=== PATIENT | female | born 1990 | race Caucasian/White ===

== ENCOUNTER 2018-11-04 04:44 | Emergency (ER) | payer OTHER ==
[~2018-11-04] VITALS: Ht 157.5 cm; Wt 78.4 kg
[2018-11-04 04:49] VITALS: BP 131/76; PULSE 79; RESP 18; Ht 157.5 cm; Wt 78.4 kg
[2018-11-04] MEDS ORDERED: ACETAMINOPHEN 500 MG TAB PO STA (05:53)
[2018-11-04] MEDS ORDERED: ACET500C5 PO (08:31)
--- NOTE | 2018-11-04 08:38 | ERD ---
ER Documentation Chief Complaint Chief Complaint pelvic pain,unknown if ,worst today HPI Patient is a 28-year-old female, presents the ER for concerns of pelvic pain for the last 2 weeks. Patient states pain became worse yesterday. Patient denies any vaginal bleeding. Patient denies any dysuria, urgency, urgency or hemat uria. Patient states her last mental period was on 09-15-18. Patient does not know if she is . Patient has no fevers or chills. Patient has no nausea, vomiting, vomiting or diarrhea. ROS All systems reviewed and are negative except as per history of present illness. Medications Home Meds Active Scripts Acetaminophen* (Tylophen*) 500 Mg Capsule, 1 CAP PO Q6H PRN for PAIN AND OR ELEVATED TEMP, #20 CAP Prov:SANTOSH FERNANDEZ PA-C 11/04/18 Allergies Allergies: Coded Allergies: No Known Allergy (Unverified , 11/04/18) PMhx/Soc Medical and Surgical Hx: pt denies Medical Hx, pt denies Surgical Hx Hx Alcohol Use: No Hx Substance Use: No Hx Tobacco Use: No FmHx Family History: No diabetes Physical Exam Vitals Vital Signs Date Temp Pulse Resp B/P (MAP) Pulse Ox O2 O2 Flow FiO2 Time Delivery Rate 11/04/18 98.4 79 18 131/76 100 04:49 (94) Physical Exam GENERAL: Well-developed, well-nourished female. Appears in no acute distress. HEAD: Normocephalic, atraumatic. EYES: Pupils are equally reactive bilaterally. EOMs grossly intact. No conjunctival erythema. NECK: Supple. No meningismus. Normal range of motion of the neck. LUNG: Clear to auscultation bilaterally. No rhonchi, wheezing, rales or coarse breath sounds. HEART: Regular rate and rhythm. No murmurs, rubs or gallops. ABDOMEN: No scars, ecchymosis or rashes noted. Soft, nontender, and nondistended. Positive bowel sounds in all four quadrants. No rebound tenderness, no guarding. (-) McBurney's point tenderness. No CVA tenderness. BACK: No midline tenderness. EXTREMITIES: Equal pulses bilaterally. No peripheral clubbing, cyanosis or edema. No unilateral leg swelling. NEUROLOGIC: Alert and oriented. Moving all four extremities without any difficulty. Normal speech. Steady gait. SKIN: Normal color. Warm and dry. No rashes or lesions. Result Diagram: 11/04/18 0600 11/04/18 0600 Results 24 hrs Laboratory Tests Test 11/04/18 06:00 11/04/18 06:34 White Blood Count 6.5 10^3/ul Red Blood Count 4.54 10^6/ul Hemoglobin 12.9 g/dl Hematocrit 39.9 % Mean Corpuscular Volume 87.9 fl Mean Corpuscular Hemoglobin 28.4 pg Mean Corpuscular Hemoglobin Concent 32.3 g/dl Red Cell Distribution Width 12.5 % Platelet Count 232 10^3/UL Mean Platelet Volume 10.4 fl Immature Granulocytes % 0.300 % Neutrophils % 56.8 % Lymphocytes % 29.8 % Monocytes % 8.8 % Eosinophils % 3.7 % Basophils % 0.6 % Nucleated Red Blood Cells % 0.0 /100WBC Immature Granulocytes # 0.020 10^3/ul Neutrophils # 3.7 10^3/ul Lymphocytes # 1.9 10^3/ul Monocytes # 0.6 10^3/ul Eosinophils # 0.2 10^3/ul Basophils # 0.0 10^3/ul Nucleated Red Blood Cells # 0.0 10^3/ul Urine Color STRAW Urine Clarity CLEAR Urine pH 6.0 Urine Specific [place] 1.006 Urine Ketones NEGATIVE mg/dL Urine Nitrite NEGATIVE mg/dL Urine Bilirubin NEGATIVE mg/dL Urine Urobilinogen NEGATIVE mg/dL Urine Leukocyte Esterase NEGATIVE Sharda/ul Urine Hemoglobin NEGATIVE mg/dL Urine Glucose NEGATIVE mg/dL Urine Total Protein NEGATIVE mg/dl Sodium Level 139 mmol/L Potassium Level 4.4 mmol/L Chloride Level 106 mmol/L Carbon Dioxide Level 23 mmol/L Anion Gap 10 Blood Urea Nitrogen 5 mg/dl Creatinine 0.69 mg/dl Est Glomerular Filtrat Rate mL/min > 60 mL/min Glucose Level 88 mg/dl Calcium Level 9.3 mg/dl Total Bilirubin 0.6 mg/dl Direct Bilirubin 0.00 mg/dl Indirect Bilirubin 0.6 mg/dl Aspartate Amino Transf (AST/SGOT) 26 IU/L Alanine Aminotransferase (ALT/SGPT) 11 IU/L Alkaline Phosphatase 74 IU/L Total Protein 7.2 g/dl Albumin 4.0 g/dl Globulin 3.20 g/dl Albumin/Globulin Ratio 1.25 Lipase 85 U/L Beta HCG, Quantitative 08909.0 mIU/ml POC Beta HCG, Qualitative POSITIVE Current Medications Medications Dose Sig/Lea Start Time Status Last (Trade) Ordered Route PRN Stop Time Admin Dose Reason Admin 500 mg ONCE STAT 11/04/18 DC 11/04/18 Acetaminophen PO 05:53 05:58 (Tylenol 11/04/18 05:54 Tab) Procedures/MDM ED COURSE: The patient was stable throughout ED course. I kept the patient and/or family informed of laboratory and diagnostic imaging results throughout the ED course. DIAGNOSTIC IMAGING: Read by radiologist. DIAGNOSTIC IMAGING REPORT Patient: CLYDE YOUSIF : 1990 Age: 28 Sex: F MR #: [id number] DOS: 11/04/18517 Ordering MD: MARC MEEK NP Location: [facility] Room/Bed: PROCEDURE: US OB. CLINICAL INDICATION: First trimester pain TECHNIQUE: Transabdominal views of the pelvis are available for review. COMPARISON: No prior studies are available for comparison. FINDINGS: The uterus is anteverted. It measures 8.5 by 4.8 by 5.4 cm. is of normal contour and echogenicity. Noted is a single intrauterine gestation sac. Mean sac diameter measures 1.4 cm in diameter. There is a pole with a heart beat measuring 112th beats per minute. [place]-rump length measures 4.28 millimeters corresponding to a gestational age of 6 weeks 1 days by ultrasound criteria. There is 1.4 x 0.8 cm subchorionic hemorrhage. The right ovary measures 3.4 x 1.4 x 1.5 centimeter. The left ovary measures 5.2 x 2.4 x 3.1 centimeter. No solid adnexal masses seen. There is a 3.2 cm left lut eal cyst. There is normal arterial flow to both ovaries on color-flow Doppler imaging. There is no free fluid in the pelvis. No solid pelvic mass is present. IMPRESSION: Single intrauterine gestation of approximate gestational age 6 weeks 1 days by ultrasound criteria with positive heart beat. Small subchorionic hemorrhage. .Toby Tim MD, MD Date Time Electronically viewed and signed by .Toby Tim MD, MD on 11/04/2018 06:22 .A/ CC: MARC MEEK [phone] PROCEDURES: None. MEDICATIONS GIVEN: Tylenol Patient tolerated medication well with no adverse reactions. Patient reported improvement in pain. MEDICAL DECISION MAKING: This is a 28-year-old female who presents to the ER for concerns of pelvic pain. vital signs were reviewed. Patient was afebrile. Patient was hemodynamically stable. Patient did not know if she was . Urine pr egnancy test was positive. Pelvic pain work-up in the setting of was initiated. CBC showed no evidence of severe anemia or systemic infection. CMP showed no severe electrolyte abnormalities, acidosis, alkalosis, renal injury or liver failure. UA was negative for acute infection. Lipase showed no evidence of pancreatitis. [place] [address]. Patient's blood type was noted to be B+. There is no indication for RhoGam at this time. Pelvic ultrasound did show single intrauterine gestation of approximately 6 weeks and 1 day with positive heartbeat. There is normal arterial flow to both ovaries. A small subchorionic hemorrhage is noted. Patient denied any vaginal bleeding. At this time, patient presentation is most consistent with new onset , pelvic pain and subchorionic hemorrhage. Patient was advised to follow-up with an [facility]. Referral information provided. Low suspicion for ectopic , ruptured ectopic , molar p regnancy, placenta previa, vasa previa, uterine rupture, UTI, pyelonephritis, severe electrolyte abnormalities, sepsis, anemia, ovarian torsion. Patient was nontoxic, non-opening prior to discharge. PRESCRIPTIONS: Tylenol DISCHARGE: At this time, patient is stable for discharge and outpatient management. I have instructed the patient to follow-up with her OBGYN in 1-2 days for further monitoring including a repeat b-HCG level. I have instructed the patient to promptly return to the ER at any time for any new or worsening symptoms including increased pain, nausea, vomiting, continued bleeding, weakness, syncope or fever. The patient and/or family expressed understanding of and agreement with this plan. All questions were answered. Home care instructions were provided. Disclaimer: Inadvertent spelling and grammatical errors are likely due to EHR/dictation software use and do not reflect on the overall quality of patient care. Also, please note that the electronic time recorded on this note does not necessarily reflect the actual time of the patient encounter. Departure Diagnosis: Primary Impression: Pelvic pain in patient at less than 20 weeks gestation Condition: Fair Patient Instructions: Pelvic Pain In : Unclear (2-3 Trimester) Referrals: [facility] [place] [address] [facility] [address] [place] [address] OFFICE FAX [facility] [address] [place] [place] [id number] [address] [facility] [address] [place] [address] [address] [facility] [address] [facility] [address] [address] [address] [facility] [address] [place] [address] [facility] [address] [place] [address] [facility] [address] - [address], [facility] [address] [address] [address] [facility]. [address], [facility] [address] [address] [address] [place], [place] [id number] Additional Instructions: Follow-up with an [facility]. See referral information. If you develop any bleedi ng return to the ER immediately. Call your primary care doctor TOMORROW for an appointment during the next 1-2 days.See the doctor sooner or return here if your condition worsens before your appointment time. SANTOSH FERNANDEZ PA-C November 04, 2018 08:38
== END 2018-11-04 08:43 | disposition home or self-care (01) ==
LOC: FTE 04:44
DX: O26.891 Other specified pregnancy related conditions, first trimester (principal); R10.2 Pelvic and perineal pain; Z3A.01 Less than 8 weeks gestation of pregnancy
CPT/HCPCS: 76801; 80053; 81003; 81025; 83690; 84702; 85025; 86900; 86901; 87086; Z7502; Z7610

== ENCOUNTER 2018-12-13 11:27 | Emergency (ER) | payer OTHER ==
[~2018-12-13] VITALS: Wt 66.8 kg
[~2018-12-13 11:27] MED LIST: ACET500C5 PO
[2018-12-13 12:06] VITALS: BP 121/63; PULSE 74; RESP 20
[2018-12-13] MEDS ORDERED: SOD CHLORIDE 0.9% 1,000 ML IV STA (12:26)
[2018-12-13] MEDS ORDERED: METOCLOPRAMIDE 10 MG INJ IV ONE (12:30)
--- NOTE | 2018-12-13 12:32 | ERD ---
ER Documentation Chief Complaint Chief Complaint diarrhea, n/v HPI 28-year-old G1, P0 female in her 11th week of was referred by OB Dr. Combs for vomiting, diarrhea, and possible dehydration. Patient states that she has been having vomiting since the beginning of the . In addition she states she is been having pelvic cramping since the beginning of the as well. The cramping at its height of intensity 6 out of 10. States that her OB is only been giving her vitamins for the vomiting. Denies any current cramping. She also states this been having diarrhea for the last several days. Diarrhea is nonbloody. Vomitus is described as nonbilious and nonbloody. She states she is also having some mild dysuria. Denies fevers, chills, vaginal bleeding, bloody stools, hematuria, flank pain. ROS All systems reviewed and are negative except as per history of present illness. Medications Home Meds Active Scripts Cephalexin* (Keflex*) 500 Mg Capsule, 500 MG PO BID for 7 Days, CAP Prov:GRACIE MADERA 12/13/18 Metoclopramide* (Reglan*) 10 Mg Tablet, 10 MG PO Q6 PRN for NAUSEA AND/OR VOMITING, #10 TAB Prov:GRACIE MADERA 12/13/18 Acetaminophen* (Tylophen*) 500 Mg Capsule, 1 CAP PO Q6H PRN for PAIN AND OR ELEVATED TEMP, #20 CAP Prov:SANTOSH FERNANDEZ PA-C 11/04/18 Allergies Allergies: Coded Allergies: No Known Allergy (Unverified , 11/04/18) PMhx/Soc Medical and Surgical Hx: pt denies Medical Hx, pt denies Surgical Hx Hx Alcohol Use: No Hx Substance Use: No Hx Tobacco Use: No Smoking Status: Never smoker FmHx Family History: No diabetes, No coronary disease, No other Physical Exam Vitals Vital Signs Date Temp Pulse Resp B/P (MAP) Pulse Ox O2 O2 Flow FiO2 Time Delivery Rate 12/13/18 97.1 74 20 121/63 99 12:06 (82) Physical Exam Const: No acute distress Head: Atraumatic Eyes: Normal Conjunctiva ENT: Normal External Ears, Nose and Mouth. Neck: Full range of motion. No meningismus. Resp: Clear to auscultation bilaterally Cardio: Regular rate and rhythm, no murmurs Abd: Tenderness to palpation in the left lower quadrant. Negative Artis's. Negative McBurney's. Skin: No petechiae or rashes Back: No midline or flank tenderness Ext: No cyanosis, or edema Neur: Awake and alert Psych: Normal Mood and Affect Result Diagram: 12/13/18 1304 12/13/18 1304 Results 24 hrs Laboratory Tests Test 12/13/18 13:03 12/13/18 13:04 Beta HCG, Quantitative 870614.0 mIU/ml White Blood Count 5.4 10^3/ul Red Blood Count 4.70 10^6/ul Hemoglobin 13.1 g/dl Hematocrit 39.5 % Mean Corpuscular Volume 84.0 fl Mean Corpuscular Hemoglobin 27.9 pg Mean Corpuscular Hemoglobin Concent 33.2 g/dl Red Cell Distribution Width 12.6 % Platelet Count 199 10^3/UL Mean Platelet Volume 11.0 fl Immature Granulocytes % 0.200 % Neutrophils % 69.2 % Lymphocytes % 20.9 % Monocytes % 7.4 % Eosinophils % 1.9 % Basophils % 0.4 % Nucleated Red Blood Cells % 0.0 /100WBC Immature Granulocytes # 0.010 10^3/ul Neutrophils # 3.7 10^3/ul Lymphocytes # 1.1 10^3/ul Monocytes # 0.4 10^3/ul Eosinophils # 0.1 10^3/ul Basophils # 0.0 10^3/ul Nucleated Red Blood Cells # 0.0 10^3/ul Urine Color YELLOW Urine Clarity CLEAR Urine pH 6.0 Urine Specific [place] 1.005 Urine Ketones 1+ mg/dL Urine Nitrite NEGATIVE mg/dL Urine Bilirubin NEGATIVE mg/dL Urine Urobilinogen NEGATIVE mg/dL Urine Leukocyte Esterase 1+ Sharda/ul Urine Microscopic RBC 1 /HPF Urine Microscopic WBC 6 /HPF Urine Squamous Epithelial Cells FEW /HPF Urine Bacteria FEW /HPF Urine Hemoglobin 1+ mg/dL Urine Glucose NEGATIVE mg/dL Urine Total Protein NEGATIVE mg/dl Sodium Level 139 mmol/L Potassium Level 4.2 mmol/L Chloride Level 103 mmol/L Carbon Dioxide Level 24 mmol/L Anion Gap 12 Blood Urea Nitrogen 5 mg/dl Creatinine 0.60 mg/dl Est Glomerular Filtrat Rate mL/min > 60 mL/min Glucose Level 88 mg/dl Calcium Level 9.8 mg/dl Total Bilirubin 0.6 mg/dl Direct Bilirubin 0.00 mg/dl Indirect Bilirubin 0.6 mg/dl Aspartate Amino Transf (AST/SGOT) 28 IU/L Alanine Aminotransferase (ALT/SGPT) 20 IU/L Alkaline Phosphatase 51 IU/L Total Protein 8.0 g/dl Albumin 4.3 g/dl Globulin 3.70 g/dl Albumin/Globulin Ratio 1.16 Lipase 175 U/L Current Medications Medications Dose Sig/Lea Start Time Status Last (Trade) Ordered Route PRN Stop Time Admin Dose Reason Admin Sodium 1,000 ml @ Q1H STAT 12/13/18 DC 12/13/18 Chloride 1,000 mls/hr IV 12:26 12/13/18 13:09 13:25 10 mg ONCE ONCE 12/13/18 DC 12/13/18 Metoclopramid IV 12:30 12/13/18 13:09 e HCl 12:31 (Reglan) Ceftriaxone 50 ml @ ONCE ONCE 12/13/18 Sodium 100 mls/hr IVPB 15:00 12/13/18 15:29 Procedures/MDM MDM: Patient was reevaluated at discharge and showed no left lower quadrant tenderness. In addition patient stated she felt much better after receiving the IV fluids and metoclopramide. UA was positive for UTI so patient treated for IV ceftriaxone as well as 7-day course of Keflex. I felt the ceftriaxone was appropriate given patient's complaint of abdominal pain as well as vomiting. However I do have a very low suspicion for pyelonephritis. Patient was tolerating p.o. fluids appropriately and passed the ED p.o. challenge test. I discussed the case my supervising physician Drs. Monge and he stated patient is fit for discharge. I have low suspicion for acute coronary syndrome, AAA, mesenteric ischemia, lower lobe pneumonia, DKA, bowel perforation, cholecystitis, choledocholithiasis, ascending cholangitis, hepatic abscess, pancreatitis, PUD, splenic rupture, diverticulitis, pyelonephritis, nephrolithiasis, appendicitis, ectopic , PID, ovarian torsion or tubo- ovarian abscess. In addition, patient was advised to return in 48 hours to rule out heterotopic . Patient to receive repeat beta quant in 48 hours upon return. At this time, patient is stable for discharge and outpatient management. I have instructed the patient to follow-up with his/her primary care physician in 1-2 days. I have discussed with the patient the possibility of needing to see a specialist for further workup and imaging studies if symptoms persist. I have instructed the patient to promptly return to the ER for any new or worsening symptoms including but not limited to increased pain, fever, nausea, vomiting, weakness or LOC. The patient and/or family expressed understanding of and agreement with this plan. All questions were answered. Home care instructions were provided. [Communication with patient both during the exam and instructions for discharge were performed with using a cage tender . Patient gave verbal confirmation to the practitioner, through the cage tender, that they understood everythign that was being said to them.] DISCLAIMER: Inadvertent spelling and grammatical errors are likely due to EHR/dictation software use and do not reflect on the overall quality of patient care. Also, please note that the electronic time recorded on this note does not necessarily reflect the actual time of the patient encounter. Departure Diagnosis: Primary Impression: Diarrhea Additional Impressions: UTI (urinary tract infection) Vomiting affecting Condition: GRACIE Sweeney Dec 13, 2018 12:32
[2018-12-13] MEDS ORDERED: METO10TA92 PO (14:21)
[2018-12-13] MEDS ORDERED: CEPH-443 PO (14:34)
[2018-12-13] MEDS ORDERED: CEFTRIAXONE 1 GM/50 ML (PMX) 50 ML IVPB ONE (15:00)
== END 2018-12-13 15:02 | disposition home or self-care (01) ==
LOC: FTE 11:27
DX: O26.891 Other specified pregnancy related conditions, first trimester (principal); O23.41 Unspecified infection of urinary tract in pregnancy, first trimester; O21.9 Vomiting of pregnancy, unspecified; R19.7 Diarrhea, unspecified; R10.2 Pelvic and perineal pain; Z3A.11 11 weeks gestation of pregnancy
CPT/HCPCS: 36415; 76801; 80053; 81001; 83690; 84702; 85025; 86900; 86901; 87086; 96361; 96365; 96375; J0696; J2765; J7030; Z7502

== ENCOUNTER → 2018-12-19 | Emergency (ER) | payer OTHER ==
[~2018-12-19] VITALS: Wt 70.0 kg
[~2018-12-19] MED LIST changes: +CEPH-443 PO; +METO10TA92 PO
[2018-12-19 10:25] VITALS: BP 115/65; PULSE 65; RESP 18
--- NOTE | 2018-12-19 11:27 | ERD ---
ER Documentation Chief Complaint Chief Complaint was told to come back, for recheck, 12 weeks HPI This is a very pleasant 28-year-old female approximately 12 weeks gestation who presents to the ED for recheck. Patient states she was seen here on December 13, 2018 for nausea vomiting and diarrhea. Her ultrasound at that time revealed a single live intrauterine with a beta quant level of over 21,000. Patient states she was discharged home with Reglan. She denies any further vomiting or diarrhea. She has no abdominal cramping. No vaginal bleeding or discharge. She is currently on antibiotics for UTI. She states her symptoms are improved but she was started to return in 2 days for recheck of her beta hCG levels. Her last menstrual cycle was September 15. She has an appointment with her OB, in 3 days. ROS All systems reviewed and are negative except as per history of present illness. Medications Home Meds Active Scripts Cephalexin* (Keflex*) 500 Mg Capsule, 500 MG PO BID for 7 Days, CAP Prov:GRACIE MADERA 12/13/18 Metoclopramide* (Reglan*) 10 Mg Tablet, 10 MG PO Q6 PRN for NAUSEA AND/OR VOMI TING, #10 TAB Prov:GRACIE MADERA 12/13/18 Acetaminophen* (Tylophen*) 500 Mg Capsule, 1 CAP PO Q6H PRN for PAIN AND OR ELEVATED TEMP, #20 CAP Prov:SANTOSH FERNANDEZ PA-C 11/04/18 Allergies Allergies: Coded Allergies: No Known Allergy (Unverified , 11/04/18) PMhx/Soc Medical and Surgical Hx: pt denies Medical Hx, pt denies Surgical Hx Hx Alcohol Use: No Hx Substance Use: No Hx Tobacco Use: No Smoking Status: Never smoker Physical Exam Vitals Vital Signs Date Temp Pulse Resp B/P (MAP) Pulse Ox O2 O2 Flow FiO2 Time Delivery Rate 12/19/18 98.0 65 18 115/65 99 10:25 (82) Physical Exam Const: No acute distress Head: Atraumatic Eyes: Normal Conjunctiva ENT: Normal External Ears, Nose and Mouth. Neck: Full range of motion. No meningismus. Resp: Clear to auscultation bilaterally Cardio: Regular rate and rhythm, no murmurs Abd: Soft, non tender, non distended. Normal bowel sounds Skin: No petechiae or rashes Back: No midline or flank tenderness Ext: No cyanosis, or edema Neur: Awake and alert Psych: Normal Mood and Affect Result Diagram: 12/19/18 1056 Results 24 hrs Laboratory Tests Test 12/19/18 10:56 White Blood Count 5.6 10^3/ul Red Blood Count 4.30 10^6/ul Hemoglobin 12.2 g/dl Hematocrit 36.8 % Mean Corpuscular Volume 85.6 fl Mean Corpuscular Hemoglobin 28.4 pg Mean Corpuscular Hemoglobin Concent 33.2 g/dl Red Cell Distribution Width 12.7 % Platelet Count 182 10^3/UL Mean Platelet Volume 10.5 fl Immature Granulocytes % 0.200 % Neutrophils % 79.3 % Lymphocytes % 13.4 % Monocytes % 5.5 % Eosinophils % 1.4 % Basophils % 0.2 % Nucleated Red Blood Cells % 0.0 /100WBC Immature Granulocytes # 0.010 10^3/ul Neutrophils # 4.4 10^3/ul Lymphocytes # 0.8 10^3/ul Monocytes # 0.3 10^3/ul Eosinophils # 0.1 10^3/ul Basophils # 0.0 10^3/ul Nucleated Red Blood Cells # 0.0 10^3/ul Urine Color YELLOW Urine Clarity SLIGHTLY CLOUDY Urine pH 7.0 Urine Specific [place] 1.011 Urine Ketones NEGATIVE mg/dL Urine Nitrite NEGATIVE mg/dL Urine Bilirubin NEGATIVE mg/dL Urine Urobilinogen NEGATIVE mg/dL Urine Leukocyte Esterase NEGATIVE Sharda/ul Urine Microscopic RBC 1 /HPF Urine Microscopic WBC 1 /HPF Urine Squamous Epithelial Cells FEW /HPF Urine Amorphous Crystals FEW /HPF Urine Hemoglobin NEGATIVE mg/dL Urine Glucose NEGATIVE mg/dL Urine Total Protein NEGATIVE mg/dl Beta HCG, Quantitative 427954.0 mIU/ml Procedures/MDM LABS & DIAGNOSTIC IMAGING: CBC: no e/o of systemic infection or severe anemia Urine: no e/o acute infection or hematuria beta hc MEDICAL DECISION MAKING: This is a 28-year-old female approximately 12 weeks gestation who presents for recheck of her beta hCG levels. Records reviewed from her visit on December 16, 2018 show that patient had a beta-hCG level of over 20,000 with a live intrauterine on ultrasound. Her beta hCG levels today is [id number], decreased from prior however this is physiologic and consistent with her 12-week gestation status. I discussed with the patient at bedside. She was given copies of her labs and ultrasound from last time to take to her OB appointment later this week. Patient has not been having any vaginal bleeding or pelvic pain. Her vital signs are normal. I have low suspicion for ectopic or sepsis. Strict return precautions given. PRESCRIPTIONS: None, continue Keflex, take Reglan as needed SPECIALIST FOLLOW UP RECOMMENDED: OB Departure Diagnosis: Primary Impression: Condition: Stable RENETTAIGRIKIANCRISTELA PA-C Dec 19, 2018 11:27
== END | disposition home or self-care (01) ==
LOC: FTE 10:21
DX: Z34.91 Encounter for supervision of normal pregnancy, unspecified, first trimester (principal); Z3A.12 12 weeks gestation of pregnancy
CPT/HCPCS: 36415; 81001; 84702; 85025; Z7502; 81003; 99283